=== PATIENT | female | born 2000 | race Caucasian/White ===

== ENCOUNTER 2018-07-18 13:59 | Observation (INO) ==
[2018-07-18] MEDS ORDERED: *HR* LORazepam 1 MG TABLET PO ONE (14:10)
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
[2018-07-18 14:28] LABS: Basophils # 0.1 K/mcL (0.0-0.2); Basophils % 0.8 %; Eosinophils # 0.4 K/mcL (0.0-0.6); Eosinophils % 4.7 %; Hematocrit 43.7 % (35.3-44.9); Hemoglobin 14.2 g/dL (11.5-15.4); Immature Granulocytes % 0.2 % (0-4); Lymphocytes # 2.8 K/mcL (0.6-4.6); Lymphocytes % 31.9 %; Mean Corpuscular HGB Conc 32.5 g/dL (31.6-35.5); Mean Corpuscular Hemoglobin 28.7 pg (28.0-33.3); Mean Corpuscular Volume 88.3 fL (83.0-100.0); Mean Platelet Volume 11.3 fL (9.4-12.4); Monocytes # 0.6 K/mcL (0.0-1.3); Monocytes % 7.2 %; Neutrophils # 4.8 K/mcL (1.6-8.9); Platelet Count 206 K/mcL (140-400); Red Blood Count 4.95 M/mcL (3.82-4.97); Red Cell Distribution Width 13.5 % (11.5-14.5); Segmented Neutrophils % 55.2 %
[2018-07-18 14:48] LABS: Platelet Estimate Normal (Normal); Reactive Lymphocytes Present (Not Present)
[2018-07-18 14:49] LABS: Acetaminophen < 10 mcg/mL (10-20); BUN/Creatinine Ratio 22 (6-26); Blood Urea Nitrogen 17 mg/dL (6-20); Calcium 9.2 mg/dL (8.6-10.3); Carbon Dioxide 24 mEq/L (23-29); Chloride 107 mEq/L (98-107); Ethanol < 10 mg/dL (Less than 10); Glucose 97 mg/dL (70-105); Osmolality,Calculated 289 (280-300); Salicylate < 2.5 mg/dL (15.0-30.0); Sodium 139 mEq/L (136-145); eGFR For Non-African Americans > 60
[2018-07-18 15:01] LABS: Thyroid Stimulating Hormone 2.147 mcIU/mL (0.340-5.600)
[2018-07-18 15:35] LABS: Bilirubin,Urine Negative (Negative); Blood,Urine Negative (Negative); Clarity,Urine Cloudy (Clear); Color,Urine Yellow (Yellow); Glucose,Urine (UA) Normal (Normal); Ketones,Urine Negative (Negative); Leukocyte Esterase,Urine Moderate (Negative); Nitrite,Urine Negative (Negative); Protein,Urine Negative (Neg-Trace); Specific Gravity,Urine 1.008 (1.010-1.025); Urobilinogen,Urine Normal (Normal)
[2018-07-18 15:37] LABS: Bacteria,Urine Moderate per hpf (None-Few); Hyaline Casts,Urine None Seen per lpf (None-Few); RBC,Urine 0-3 per hpf (0-3); Squamous Epithelial Cell,Urine Many per lpf (None-Few)
[2018-07-18 15:44] LABS: Amphetamine Screen,Urine Negative ng/mL (Cutoff=1000); Barbiturate Screen,Urine Negative ng/mL (Cutoff=200); Benzodiazepines Screen,Urine Negative ng/mL (Cutoff=200); Cannabinoid Screen,Urine Positive ng/mL (Cutoff = 50); Cocaine Screen,Urine Negative ng/mL (Cutoff= 300); Opiate Screen,Urine Negative ng/mL (Cutoff=300); Phencyclidine Screen,Urine Negative ng/mL (Cutoff=25)
[2018-07-18] MEDS ORDERED: MOM Conc 10 ML UD.LIQ PO PRN (18:39)
[2018-07-18] MEDS ORDERED: *HR* LORazepam 1 MG TABLET PO PRN (18:39)
[2018-07-18] MEDS ORDERED: Ibuprofen 400 MG TABLET PO PRN (18:39)
[2018-07-18] MEDS ORDERED: *HR* LORazepam 2 MG/ML VIAL IM PRN (18:39)
[2018-07-18] MEDS ORDERED: Mag Hydrox/Al Hydrox/Simeth 30 ML UDC PO PRN (18:39)
[2018-07-18] MEDS ORDERED: traZODone 50 MG TABLET PO PRN (18:39)
[2018-07-18] MEDS ORDERED: Haloperidol Lactate 5 MG/ML VIAL IM PRN (18:39)
[2018-07-18] MEDS ORDERED: hydrOXYzine pamoate 25 MG CAPSULE PO PRN (18:39)
[2018-07-19 11:13] VITALS: BP 97/60
--- NOTE | 2018-07-19 16:47 | Electrocardiograph Report ---
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
--- NOTE | 2018-07-19 16:53 | Electrocardiograph Report ---
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
== END 2018-07-19 19:45 | disposition home or self-care (01) ==
LOC: 1ANU 13:59 → EMEROOARM 13:59 → 1ANU 18:28
PROVIDERS: ADMIT Psychiatry & Neurology Psychiatry; ATTEND Psychiatry & Neurology Psychiatry